=== PATIENT | male | born 1980 | race Caucasian/White ===

== ENCOUNTER 2018-04-24 18:23 | Emergency (ER) | payer BC ==
--- NOTE | 2018-04-24 20:11 | EDPHYS ---
Physician Documentation [facility] Name: Eyad Blanca Age: 38 yrs Sex: Male : 1980 Arrival Date: 04/24/2018 Time: 18:27 Bed 11 Private MD: Nuno Ariza ED Physician Eliud Becerril HPI: 04/24 20:10 This 38 yrs old Male presents to ER via Ambulatory with complaints of pm1 Possible Animal Bite. 20:10 Patient saw a bat on the ground and started kicking it out of the way with his left pm1 foot. Patient was wearing leather shoes and is concerned that it might have bitten him on his left great toe because he is having occasional numbness to it. There was no blood on his left foot, no puncture wound to shoe, no blood on sock, no redness or swelling to left great toe. Historical: - Allergies: 18:34 No Known Allergies; dm5 - Home Meds: 18:34 None [Active]; dm5 - PMHx: 18:34 None; dm5 - PSHx: 18:34 None; dm5 - Immunization history:: Adult Immunizations up to date. - Social history:: Smoking status: Patient/guardian denies using tobacco. - Ebola Screening: : Patient negative for fever greater than or equal to 101.5 degrees Fahrenheit, and additional compatible Ebola Virus Disease symptoms Patient denies exposure to infectious person Patient denies travel to an Ebola-affected area in the 21 days before illness onset No symptoms or risks identified at this time. ROS: 20:10 Constitutional: Negative for fever, chills, and weight loss, Eyes: Negative for injury, pm1 pain, redness, and discharge, ENT: Negative for injury, pain, and discharge, Neck: Negative for injury, pain, and swelling, Cardiovascular: Negative for chest pain, palpitations, and edema, Respiratory: Negative for shortness of breath, cough, wheezing, and pleuritic chest pain, Abdomen/GI: Negative for abdominal pain, nausea, vomiting, diarrhea, and constipation, Back: Negative for injury and pain, : Negative for injury, bleeding, discharge, and swelling. 20:10 Skin: Negative for injury, rash, and discoloration, Neuro: Negative for headache, weakness, numbness, tingling, and seizure. 20:10 MS/extremity: Positive for On and off numbness to left great toe, Negative for deformity, puncture. Exam: 20:10 Constitutional: This is a well developed, well nourished patient who is awake, alert, pm1 and in no acute distress. Head/Face: Normocephalic, atraumatic. Eyes: Pupils equal round and reactive to light, extra-ocular motions intact. Lids and lashes normal. Conjunctiva and sclera are non-icteric and not injected. Cornea within normal limits. Periorbital areas with no swelling, redness, or edema. ENT: Nares patent. No nasal discharge, no septal abnormalities noted. Tympanic membranes are normal and external auditory canals are clear. Oropharynx with no redness, swelling, or masses, exudates, or evidence of obstruction, uvula midline. Mucous membranes moist. Neck: Trachea midline, no thyromegaly or masses palpated, and no cervical lymphadenopathy. Supple, full range of motion without nuchal rigidity, or vertebral point tenderness. No Meningismus. Chest/axilla: Normal chest wall appearance and motion. Nontender with no deformity. No lesions are appreciated. Cardiovascular: Regular rate and rhythm with a normal S1 and S2. No gallops, murmurs, or rubs. Normal PMI, no JVD. No pulse deficits. Respiratory: Lungs have equal breath sounds bilaterally, clear to auscultation and percussion. No rales, rhonchi or wheezes noted. No increased work of breathing, no retractions or nasal flaring. Abdomen/GI: Soft, non-tender, with normal bowel sounds. No distension or tympany. No guarding or rebound. No evidence of tenderness throughout. Back: No spinal tenderness. No costovertebral tenderness. Full range of motion. Skin: Warm, dry with normal turgor. Normal color with no rashes, no lesions, and no evidence of cellulitis. No evidence of lacerationor pucnture wound present to left foot MS/ Extremity: Pulses equal, no cyanosis. Neurovascular intact. Full, normal range of motion. 20:10 Neuro: Orientation: is normal, Motor: is normal. Vital Signs: 18:33 BP 156 / 95; Pulse 100; Resp 17; Temp 98.1; Pulse Ox 100% on R/A; Weight 95.25 kg; dm5 Height 6 ft. 0 in. (182.88 cm); Pain 6/10; 20:02 BP 130 / 88; Pulse 85; Resp 18; Pulse Ox 100% on R/A; Pain 0/10; mg2 18:33 Body Mass Index 28.48 (95.25 kg, 182.88 cm) dm5 MDM: 18:48 Patient medically screened. [facility] 20:10 Data reviewed: vital signs. Data interpreted: Pulse oximetry: on room air is 100 %. pm1 Interpretation: normal. Counseling: I had a detailed discussion with the patient and/or guardian regarding: the historical points, exam findings, and any diagnostic results supporting the discharge/admit diagnosis, the need for outpatient follow up, to return to the emergency department if symptoms worsen or persist or if there are any questions or concerns that arise at home. Administered Medications: No medications were administered Disposition: 04/25 07:23 Co-signature as Attending Physician, Eliud Becerril MD I agree with the assessment and [facility] plan of care. Disposition: 04/24/18 20:11 Discharged to Home. Impression: Person with feared health complaint in whom no diagnosis is made. - Condition is Stable. - Medication Reconciliation Form, Thank You Letter, Antibiotic Education, Prescription Opioid Use form. - Follow up: Emergency Department; When: As needed; Reason: Worsening of condition. Follow up: Private Physician; When: 2 - 3 days; Reason: Recheck today's complaints, Continuance of care, Re-evaluation by your physician. - Problem is new. - Symptoms have improved. Signatures: Gabby Dunaway RN RN dm5 Eliud Becerril MD MD cha Marinas, Patrick, CHEESE WRAPPER CHEESE WRAPPER pm1 Santino Santa RN RN mg2 Corrections: (The following items were deleted from the chart) 04/24 20:22 20:11 04/24/2018 20:11 Discharged to Home. Impression: Person with feared health mg2 complaint in whom no diagnosis is made. Condition is Stable. Forms are Medication Reconciliation Form, Thank You Letter, Antibiotic Education, Prescription Opioid Use. Follow up: Emergency Department; When: As needed; Reason: Worsening of condition. Follow up: Private Physician; When: 2 - 3 days; Reason: Recheck today's complaints, Continuance of care, Re-evaluation by your physician. Problem is new. Symptoms have improved. pm1
--- NOTE | 2018-04-24 20:11 | ER ---
Nurse's Notes [facility] Name: Eyad Blanca Age: 38 yrs Sex: Male : 1980 Arrival Date: 04/24/2018 Time: 18:27 Bed 11 Private MD: Nuno Arzia Diagnosis: Person with feared health complaint in whom no diagnosis is made Presentation: 04/24 18:31 Presenting complaint: Patient states: pt reports kicking a bat with his left foot, shoe dm5 on, when he felt some throbbing and pain in the left great toe, pt unsure if the bat bit him, no redness, swelling or pain reported to the toe, just would like to get evaluated. Transition of care: patient was not received from another setting of care. Onset of symptoms was April 24, 2018. Risk Assessment: Do you want to hurt yourself or someone else? Patient reports no desire to harm self or others. Initial Sepsis Screen: Does the patient meet any 2 criteria? No. Patient's initial sepsis screen is negative. Does the patient have a suspected source of infection? No. Patient's initial sepsis screen is negative. Care prior to arrival: None. 18:31 Method Of Arrival: Ambulatory dm5 18:31 Acuity: CHRISTOPHER 5 dm5 Triage Assessment: 18:44 Bite description: animal information: vaccination(s). mg2 Historical: - Allergies: 18:34 No Known Allergies; dm5 - Home Meds: 18:34 None [Active]; dm5 - PMHx: 18:34 None; dm5 - PSHx: 18:34 None; dm5 - Immunization history:: Adult Immunizations up to date. - Social history:: Smoking status: Patient/guardian denies using tobacco. - Ebola Screening: : Patient negative for fever greater than or equal to 101.5 degrees Fahrenheit, and additional compatible Ebola Virus Disease symptoms Patient denies exposure to infectious person Patient denies travel to an Ebola-affected area in the 21 days before illness onset No symptoms or risks identified at this time. Screenin:39 Abuse screen: Denies threats or abuse. Nutritional screening: No deficits noted. mg2 Tuberculosis screening: No symptoms or risk factors identified. Fall Risk None identified. Assessment: 18:39 General: Appears in no apparent distress. comfortable, Behavior is calm, cooperative. mg2 Pain: Complains of pain in left big toe Pain does not radiate. Pain currently is 2 out of 10 on a pain scale. Quality of pain is described as throbbing. Neuro: Level of Consciousness is awake, alert, obeys commands, Oriented to person, place, time. Cardiovascular: No deficits noted. Respiratory: No deficits noted. GI: No deficits noted. : No deficits noted. EENT: No deficits noted. Derm: Skin is intact, Skin is pink, warm \T\ dry. normal. Musculoskeletal: Circulation, motion, and sensation intact. Capillary refill < 3 seconds. 20:22 Reassessment: reassurance provided by TIAGO Larry. mg2 Vital Signs: 18:33 BP 156 / 95; Pulse 100; Resp 17; Temp 98.1; Pulse Ox 100% on R/A; Weight 95.25 kg; dm5 Height 6 ft. 0 in. (182.88 cm); Pain 6/10; 20:02 BP 130 / 88; Pulse 85; Resp 18; Pulse Ox 100% on R/A; Pain 0/10; mg2 18:33 Body Mass Index 28.48 (95.25 kg, 182.88 cm) dm5 ED Course: 18:27 Patient arrived in ED. sb2 18:27 Nuno Ariza MD is Private Physician. sb2 18:32 Triage completed. dm5 18:33 Arm band placed on. dm5 18:35 Santino Santa, CARLOS is Primary Nurse. mg2 18:39 No provider procedures requiring assistance completed. Patient did not have IV access mg2 during this emergency room visit. 18:44 [facility] pm1 18:44 Eliud Becerril MD is Attending Physician. pm1 18:45 Patient has correct armband on for positive identification. mg2 Administered Medications: No medications were administered Outcome: 20:11 Discharge ordered by . pm1 20:21 Discharged to home ambulatory. mg2 20:21 Condition: stable 20:21 Discharge instructions given to patient, Instructed on discharge instructions, follow up and referral plans. Demonstrated understanding of 20:22 Patient left the ED. mg2 Signatures: Gabby Dunaway RN RN dm5 Laron Arroyo NP [employer]IST pm1 Ritika Scanlon sb2 Santino Santa RN RN mg2
== END 2018-04-24 20:22 | disposition home or self-care (01) ==
LOC: ER 18:23
DX: Z71.1 Person with feared health complaint in whom no diagnosis is made (principal)
CPT/HCPCS: 99281